=== PATIENT | female | born 1945 | race Caucasian/White ===

== ENCOUNTER 2018-01-06 14:42 | Outpatient (CLI) | payer MEDICARE, OTHER | END 2018-01-06 14:43 | disposition home or self-care (01) | LOC: BICMAMMO 14:42 | PROVIDERS: ATTEND Family Medicine | DX: Z12.31 Encounter for screening mammogram for malignant neoplasm of breast (principal) | CPT/HCPCS: 77063; 77067 ==

== ENCOUNTER 2018-05-04 10:10 | Outpatient (CLI) | payer MEDICARE, OTHER ==
--- NOTE | 2018-05-04 12:15 | BD ---
BONE DENSITOMETRY USING DEXA: Date: 05/04/18 HISTORY: Postmenopausal screening for osteoporosis. FINDINGS: Lumbar Spine: BMD (g/cm2) L1 0.869 T-Score: -1.1 Z-Score: 0.9 L2 0.955 T-Score: -0.7 Z-Score: 1.5 L3 0.896 T-Score: -1.7 Z-Score: 0.6 L4 0.963 T-Score: -0.9 Z-Score: 1.5 L1-L4 0.921 T-Score: -1.1 Z-Score: 1.1 Femoral Neck: 0.705 T-Score: -1.3 Z-Score: 0.6 Total Femur: 0.892 T-Score: -0.4 Z-Score: 1.2 The 10 year fracture risk for a major osteoporotic fracture is 15% and for a hip fracture is 3.8%. IMPRESSION: Osteopenia. POS: JIM
== END 2018-05-04 10:11 | disposition home or self-care (01) ==
LOC: BICMAMMO 10:10
PROVIDERS: ATTEND Family Medicine
DX: M81.0 Age-related osteoporosis without current pathological fracture (principal); M85.80 Other specified disorders of bone density and structure, unspecified site
CPT/HCPCS: 77080

== ENCOUNTER 2019-01-10 14:29 | Outpatient (CLI) | payer MEDICARE, OTHER ==
--- NOTE | 2019-01-10 16:14 | MMO ---
Bilateral MAMMO Bilat Screen [facility]. CLINICAL HISTORY: Patient is 73 years old and is seen for screening. The patient has no family history of breast cancer. The patient has no personal history of cancer. VIEWS: The views performed were: bilateral craniocaudal with tomosynthesis and bilateral mediolateral oblique with tomosynthesis. FILMS COMPARED: The present examination has been compared to prior imaging studies performed at [facility] on 12/20/2014, 12/23/2015, 12/30/2016 and 01/06/2018. MAMMOGRAM FINDINGS: There are scattered fibroglandular densities. There are stable benign appearing calcifications seen in both breasts. There are no suspicious masses, suspicious calcifications, or new areas of architectural distortion. IMPRESSION: THERE IS NO MAMMOGRAPHIC EVIDENCE OF MALIGNANCY. A ROUTINE FOLLOW-UP MAMMOGRAM IN 1 YEAR IS RECOMMENDED. THE RESULTS OF THIS EXAM WERE SENT TO THE PATIENT. ACR BI-RADS Category 2 - Benign finding MAMMOGRAPHY NOTE: 1. A negative mammogram report should not delay a biopsy if a dominant of clinically suspicious mass is present. 2. Approximately 10% to 15% of breast cancers are not detected by mammography. 3. Adenosis and dense breasts may obscure an underlying neoplasm. Reported by: SHANTELLE PORTILLO MD Electonically Signed: [id number]
== END 2019-01-10 14:30 | disposition home or self-care (01) ==
LOC: BICMAMMO 14:29
PROVIDERS: ATTEND Family Medicine
DX: Z12.31 Encounter for screening mammogram for malignant neoplasm of breast (principal)
CPT/HCPCS: 77063; 77067

== ENCOUNTER 2019-02-21 13:43 | Outpatient (CLI) | payer MEDICARE, OTHER ==
--- NOTE | 2019-02-21 15:40 | ULT ---
BILATERAL CAROTID DUPLEX ULTRASOUND: HISTORY: Bruit TECHNIQUE: Grayscale, color-flow and spectral Doppler ultrasound imaging of the extracranial carotid artery syst ems was performed bilaterally. FINDINGS: Mild plaque formation. The peak systolic velocity in the right ICA measures 79 cm/s. The peak systolic velocity in the left ICA measures 71 cm/s. Vertebral flow: antegrade, bilaterally. IMPRESSION: No hemodynamically significant stenosis of Both ICAs.
== END 2019-02-21 13:44 | disposition home or self-care (01) ==
LOC: BICULT 13:43
PROVIDERS: ATTEND Family Medicine
DX: R09.89 Other specified symptoms and signs involving the circulatory and respiratory systems (principal)
CPT/HCPCS: 93880

== ENCOUNTER 2023-03-17 11:43 | Inpatient (IN) | payer MEDICARE, OTHER ==
[2023-03-17] MEDS ORDERED: fentaNYL 50 mcg/mL 1 mL Vial ONE ×4 (12:17→19:29)
[2023-03-17 12:33] LABS: #Eosinphils 0.4 thou/uL (0.0-0.7); #Monocytes 0.6 thou/uL (0.11-0.59); #Neutrophils 2.8 thou/uL (1.40-6.50); %Basophils 0.9 % (0.0-1.0); %Eosinophils 7.5 % (0.0-10.0); %Lymphocytes 19.1 % (21.0-51.0); %Monocytes 11.8 % (0.0-10.0); %Neutrophils 60.3 % (42.0-75.0); Hematocrit 36.8 % (36.0-47.0); Hemoglobin 12.1 g/dL (12.0-16.0); Mean Corpuscular HGB CONC 32.9 g/dL (32.0-36.0); Mean Corpuscular Hemoglobin 34.4 pg (27.0-31.0); Mean Corpuscular Volume 104.5 fl (78.0-98.0); Mean Platelet Volume 10.6 fL (7.4-10.4); Platelet Count 207 10x3/uL (130-400); RBC Distribution Width 13.2 % (11.5-14.5); Red Blood Cell (RBC) Count 3.52 mill/uL (4.20-5.40); White Blood Cell (WBC) Count 4.7 10x3/uL (4.8-10.8)
[2023-03-17 13:01] LABS: ALT (SGPT) 20 U/L (8-55); AST (SGOT) 25 U/L (5-34); Albumin 4.1 g/dL (3.4-4.8); Alkaline Phosphatase 52 U/L (40-110); Anion Gap 11 mmol/L (10-20); BUN (Urea Nitrogen) 19 mg/dL (9.8-20.1); Bilirubin, Total 0.3 mg/dL (0.2-1.2); Calc. Creatinine Clearance 0 mL/min (70-130); Calcium 9.2 mg/dL (7.8-10.44); Carbon Dioxide 25 mmol/L (23-31); Chloride 106 mmol/L (98-107); Estimated GFR 80; Globulin 3.1 g/dL (2.4-3.5); Glucose 152 mg/dL (83-110); Potassium 4.3 mmol/L (3.5-5.1); Protein, Total 7.2 g/dL (5.8-8.1); Sodium 138 mmol/L (136-145)
[2023-03-17] MEDS ORDERED: CEFAZOLIN 2 GM in Sodium Chloride 0.9% 100 ML IVPB SCH (13:15)
[2023-03-17] MEDS ORDERED: Morphine 2 MG/ML VIAL SLOW IVP PRN (13:34)
[2023-03-17] MEDS ORDERED: Ipratropium/Albuterol 3 ML NEB NEB PRN (13:34)
[2023-03-17] MEDS ORDERED: Ondansetron PF 4 MG/2 ML Vial IVP PRN (13:34)
[2023-03-17] MEDS ORDERED: Sodium Chloride 0.9% 100 ML ONE (16:37)
[2023-03-17] MEDS ORDERED: CEFAZOLIN 2 GM VIAL ONE (16:37)
[2023-03-17] MEDS ORDERED: Norepinephrine 4 MG/4 ML VIAL ONE (16:45)
[2023-03-17] MEDS ORDERED: fentaNYL PF 100 MCG/2 ML SYRINGE ONE (16:45)
[2023-03-17] MEDS ORDERED: Dexmedetomidine 200 MCG/2 ML VIAL ONE (16:45)
[2023-03-17] MEDS ORDERED: PROPOFOL 200 MG/20 ML VIAL ONE (16:55)
[2023-03-17] MEDS ORDERED: PHENYLEPHRINE-NS 100 MCG/ML 10 ML SYRINGE ONE (16:55)
[2023-03-17] MEDS ORDERED: Ondansetron PF 4 MG/2 ML Vial ONE (16:55)
[2023-03-17] MEDS ORDERED: ePHEDrine Sulfate 50 MG/10 ML VIAL ONE (16:55)
[2023-03-17] MEDS ORDERED: Glycopyrrolate 0.2 MG/ML 5 ML SYRINGE ONE (16:55)
[2023-03-17] MEDS ORDERED: Dexamethasone 20 MG/5 ML VIAL ONE (16:55)
[2023-03-17] MEDS ORDERED: NEOSTIGMINE 3 MG/3 ML SYR 3 MG/3 ML SYRINGE ONE (16:55)
[2023-03-17] MEDS ORDERED: Rocuronium Bromide 10 MG/ML (10ML VIAL) ONE (16:55)
[2023-03-17] MEDS ORDERED: Promethazine HCl 25 MG/ML VIAL IM PRN (18:10)
[2023-03-17] MEDS ORDERED: Ondansetron HCl/PF 4 MG/2 ML Vial IVP PRN (18:10)
[2023-03-17] MEDS: traMADol HCl 50 MG TAB PO PRN (21:31)
[2023-03-17] MEDS: Acetaminophen 500 MG TAB PO SCH (21:32)
[2023-03-17] MEDS: Senokot S 8.6-50 MG TAB PO SCH (21:32)
[2023-03-17] MEDS: traMADol HCl 50 MG TAB PO SCH (21:33)
[2023-03-17] MEDS: Famotidine/PF 20 mg/2ml Vial SLOW IVP SCH (21:34)
[2023-03-17] MEDS: CEFAZOLIN 2 GM in Sodium Chloride 0.9% 100 ML IVPB SCH (21:35)
[2023-03-17] MEDS: Sodium Chloride 0.9% 1,000 ML IV SCH (22:47)
[2023-03-17 23:41] VITALS: BMI 28.8
[2023-03-18] MEDS: traMADol HCl 50 MG TAB PO SCH ×4 (00:13→18:18)
[2023-03-18] MEDS: ALPRAZolam 0.25 MG TAB PO PRN ×3 (00:13→20:04)
[2023-03-18] MEDS: Acetaminophen 500 MG TAB PO SCH ×5 (02:30→20:01)
[2023-03-18] MEDS: CEFAZOLIN 2 GM in Sodium Chloride 0.9% 100 ML IVPB SCH (05:41)
[2023-03-18 05:53] LABS: #Monocytes 0.5 thou/uL (0.11-0.59); #Neutrophils 7.4 thou/uL (1.40-6.50); %Basophils 0.2 % (0.0-1.0); %Lymphocytes 4.8 % (21.0-51.0); %Monocytes 5.8 % (0.0-10.0); %Neutrophils 88.7 % (42.0-75.0); Hematocrit 28.1 % (36.0-47.0); Mean Corpuscular HGB CONC 32.4 g/dL (32.0-36.0); Mean Corpuscular Hemoglobin 34.1 pg (27.0-31.0); Mean Corpuscular Volume 105.2 fl (78.0-98.0); Platelet Count 184 10x3/uL (130-400); RBC Distribution Width 13.2 % (11.5-14.5); Red Blood Cell (RBC) Count 2.67 mill/uL (4.20-5.40); White Blood Cell (WBC) Count 8.3 10x3/uL (4.8-10.8)
[2023-03-18 05:54] LABS: Hemoglobin 9.1 g/dL (12.0-16.0)
[2023-03-18 06:07] LABS: INR-International Normal Ratio 1.1; PTT 30.7 sec (22.9-36.1); Prothrombin Time 14.8 sec (12.0-14.7)
[2023-03-18 06:35] LABS: Anion Gap 14 mmol/L (10-20); BUN (Urea Nitrogen) 13 mg/dL (9.8-20.1); Calc. Creatinine Clearance 80 mL/min (70-130); Calcium 8.3 mg/dL (7.8-10.44); Carbon Dioxide 23 mmol/L (23-31); Chloride 104 mmol/L (98-107); Estimated GFR 90; Glucose 134 mg/dL (83-110); Potassium 4.3 mmol/L (3.5-5.1); Sodium 137 mmol/L (136-145)
[2023-03-18] MEDS: Sodium Chloride 0.9% 1,000 ML IV SCH (07:38)
[2023-03-18] MEDS: Polyethylene Glycol 3350 17 GM Packet PO SCH (08:55)
[2023-03-18] MEDS: Famotidine/PF 20 mg/2ml Vial SLOW IVP SCH ×2 (08:56→20:03)
[2023-03-18] MEDS: Senokot S 8.6-50 MG TAB PO SCH ×2 (08:56→20:04)
[2023-03-18] MEDS: traMADol HCl 50 MG TAB PO PRN ×2 (12:07→18:18)
[2023-03-18] MEDS ORDERED: Pseudoephedrine HCl 30 MG TAB PO PRN (16:32)
[2023-03-18] MEDS ORDERED: Alendronate Sodium 70 mg Tablet PO SCH (16:45)
[2023-03-18] MEDS: Gabapentin 300 MG CAP PO SCH (20:03)
[2023-03-18] MEDS: Zolpidem Tartrate 5 MG TAB PO SCH (20:04)
[2023-03-18] MEDS: Gemfibrozil 600 MG TAB PO SCH (20:04)
[2023-03-18] MEDS: traZODone HCl 50 MG TAB PO SCH (20:04)
[2023-03-18] MEDS: Famotidine 20 MG TAB PO SCH (20:39)
[2023-03-19] MEDS: traMADol HCl 50 MG TAB PO SCH ×5 (00:10→23:20)
[2023-03-19] MEDS: Acetaminophen 500 MG TAB PO SCH ×4 (01:48→16:47)
[2023-03-19 06:59] LABS: #Eosinphils 0.2 thou/uL (0.0-0.7); #Monocytes 0.6 thou/uL (0.11-0.59); #Neutrophils 4.2 thou/uL (1.40-6.50); %Basophils 0.5 % (0.0-1.0); %Eosinophils 3.2 % (0.0-10.0); %Lymphocytes 9.7 % (21.0-51.0); %Monocytes 10.9 % (0.0-10.0); %Neutrophils 75.3 % (42.0-75.0); Hematocrit 26.6 % (36.0-47.0); Hemoglobin 8.4 g/dL (12.0-16.0); Mean Corpuscular HGB CONC 31.6 g/dL (32.0-36.0); Mean Corpuscular Hemoglobin 34.3 pg (27.0-31.0); Mean Corpuscular Volume 108.6 fl (78.0-98.0); Mean Platelet Volume 10.8 fL (7.4-10.4); Platelet Count 160 10x3/uL (130-400); RBC Distribution Width 13.5 % (11.5-14.5); Red Blood Cell (RBC) Count 2.45 mill/uL (4.20-5.40); White Blood Cell (WBC) Count 5.6 10x3/uL (4.8-10.8)
[2023-03-19] MEDS: Famotidine 20 MG TAB PO SCH ×2 (08:30→21:02)
[2023-03-19] MEDS: ALPRAZolam 0.25 MG TAB PO PRN ×3 (08:30→21:04)
[2023-03-19] MEDS: Gemfibrozil 600 MG TAB PO SCH ×2 (08:30→21:03)
[2023-03-19] MEDS: Senokot S 8.6-50 MG TAB PO SCH ×2 (08:30→21:02)
[2023-03-19] MEDS: Aspirin 81 mg Enteric Coated Tablet PO SCH ×2 (08:30→21:02)
[2023-03-19] MEDS: Gabapentin 300 MG CAP PO SCH ×3 (08:31→21:03)
[2023-03-19] MEDS: Fluticasone Propionate Nasal Spray 16 gm Bottle NASAL SCH (08:32)
[2023-03-19] MEDS: Polyethylene Glycol 3350 17 GM Packet PO SCH (08:32)
[2023-03-19] MEDS: traMADol HCl 50 MG TAB PO PRN (12:57)
[2023-03-19] MEDS: Zolpidem Tartrate 5 MG TAB PO SCH (21:02)
[2023-03-19] MEDS: traZODone HCl 50 MG TAB PO SCH (21:02)
[2023-03-20] MEDS: Acetaminophen 500 MG TAB PO SCH ×4 (02:47→20:40)
[2023-03-20] MEDS: traMADol HCl 50 MG TAB PO SCH ×4 (05:30→23:00)
[2023-03-20] MEDS: Senokot S 8.6-50 MG TAB PO SCH ×2 (09:11→20:44)
[2023-03-20] MEDS: Aspirin 81 mg Enteric Coated Tablet PO SCH ×2 (09:11→20:40)
[2023-03-20] MEDS: traMADol HCl 50 MG TAB PO PRN (09:12)
[2023-03-20] MEDS: Ascorbic Acid 500 mg Chewable Tablet PO SCH ×2 (09:12→20:39)
[2023-03-20] MEDS: Gabapentin 300 MG CAP PO SCH ×3 (09:13→20:40)
[2023-03-20] MEDS: Polyethylene Glycol 3350 17 GM Packet PO SCH (09:13)
[2023-03-20] MEDS: Gemfibrozil 600 MG TAB PO SCH ×2 (09:13→20:39)
[2023-03-20] MEDS: Famotidine 20 MG TAB PO SCH ×2 (09:13→20:39)
[2023-03-20] MEDS: Fluticasone Propionate Nasal Spray 16 gm Bottle NASAL SCH (12:26)
[2023-03-20] MEDS: Ferrous Sulfate 325 MG TAB PO SCH (17:41)
[2023-03-20] MEDS: traZODone HCl 50 MG TAB PO SCH (20:39)
[2023-03-20] MEDS: Zolpidem Tartrate 5 MG TAB PO SCH (20:39)
[2023-03-20] MEDS: ALPRAZolam 0.25 MG TAB PO PRN (23:00)
[2023-03-21] MEDS: Acetaminophen 500 MG TAB PO SCH ×3 (01:32→14:40)
[2023-03-21] MEDS: traMADol HCl 50 MG TAB PO SCH ×3 (05:44→17:03)
[2023-03-21 06:36] LABS: Hematocrit 27.2 % (36.0-47.0); Hemoglobin 8.6 g/dL (12.0-16.0)
[2023-03-21] MEDS: Ascorbic Acid 500 mg Chewable Tablet PO SCH (09:11)
[2023-03-21] MEDS: Ferrous Sulfate 325 MG TAB PO SCH ×2 (09:11→17:02)
[2023-03-21] MEDS: Gemfibrozil 600 MG TAB PO SCH (09:11)
[2023-03-21] MEDS: Famotidine 20 MG TAB PO SCH (09:11)
[2023-03-21] MEDS: Gabapentin 300 MG CAP PO SCH ×2 (09:11→14:39)
[2023-03-21] MEDS: Polyethylene Glycol 3350 17 GM Packet PO SCH (09:12)
[2023-03-21] MEDS: Aspirin 81 mg Enteric Coated Tablet PO SCH (09:12)
[2023-03-21] MEDS: Senokot S 8.6-50 MG TAB PO SCH (09:12)
[2023-03-21] MEDS: Fluticasone Propionate Nasal Spray 16 gm Bottle NASAL SCH (10:06)
[2023-03-21 17:06] VITALS: BP 123/75; TEMP 99
== END 2023-03-21 17:52 | disposition swing bed (61) | DRG 481 ==
LOC: ERS 11:43 → SURG A 13:34 → SJJU 14:27
PROVIDERS: ADMIT Surgery; ATTEND Surgery
PROC: 0QS706Z Reposition Left Upper Femur with Intramedullary Internal Fixation Device, Open Approach (ICD-10-PCS; principal; 2023-03-17)
DX: S72.142A Displaced intertrochanteric fracture of left femur, initial encounter for closed fracture (principal); D62 Acute posthemorrhagic anemia; W18.30XA Fall on same level, unspecified, initial encounter; F41.9 Anxiety disorder, unspecified; F32.A Depression, unspecified; Z91.040 Latex allergy status; Z88.2 Allergy status to sulfonamides; Z88.1 Allergy status to other antibiotic agents; Z79.899 Other long term (current) drug therapy; Z90.710 Acquired absence of both cervix and uterus; Z90.89 Acquired absence of other organs; Z85.048 Personal history of other malignant neoplasm of rectum, rectosigmoid junction, and anus; I10 Essential (primary) hypertension; Y92.009 Unspecified place in unspecified non-institutional (private) residence as the place of occurrence of the external cause; M81.0 Age-related osteoporosis without current pathological fracture; I73.9 Peripheral vascular disease, unspecified; Z92.21 Personal history of antineoplastic chemotherapy; Z92.3 Personal history of irradiation
CPT/HCPCS: 36415; 71045; 80048; 80053; 85014; 85018; 85025; 85610; 85730; 93005; 94760; 96374; C1713; G0390; J1100; J2405; J2704; J3010; J3490; J7050; S0028